=== PATIENT | female | born 1975 | race Caucasian/White ===

== ENCOUNTER → 2021-12-16 | Outpatient (CLI) | payer OTHER ==
--- NOTE | 2022-01-02 15:46 | RAD ---
INDICATION: 46 years of age asymptomatic female patient presents for screening mammography. TECHNIQUE: Full field craniocaudal and mediolateral oblique images of both breasts were obtained usi ng digital technique with tomosynthesis and also analyzed with computer-aided detection software. COMPARISON: None available. Prior imaging performed at outside hospital not available at time of exam ination. BREAST COMPOSITION: Category B: There are scattered fibroglandular densities. FINDINGS: No suspicious masses, microcalcifications or architectural distortion is present to suggest malignanc y in either breast. The visualized axillae are unremarkable. IMPRESSION: No mammographic evidence of malignancy. RECOMMENDATION: Annual screening mammography is recommended, unless clinically indicated sooner based on symptoms or change in physical exam. BIRADS 1: NEGATIVE This study was interpreted with the benefit of Computerized Aided Detection (CAD). Patient information is entered into the reminder system with a target due date for the next screening mammogram. Mammography is the most sensitive method for finding small breast cancers, but it does not detect the m all and is not a substitute for careful clinical examination. A negative mammogram does not negate a clinically suspicious finding and should not result in delay in biopsying a clinically suspicious a bnormality. "Our facility is accredited by the [employer] Mammography Program." Electronically signed by: Waldemar Madison MD (01/02/2022 3:44 PM) [id number] BIRADS 0-6
== END ==
LOC: MAMMO 10:32
PROVIDERS: ATTEND Family Medicine
DX: Z12.31 Encounter for screening mammogram for malignant neoplasm of breast (principal)
CPT/HCPCS: 77063; 77067